=== PATIENT | male | born 1985 | race Caucasian/White ===

== ENCOUNTER 2024-08-30 21:17 | Emergency (ER) | payer BC, SELFPAY ==
[2024-08-30 21:24] VITALS: BP 155/102
[2024-08-30 21:44] VITALS: BP 144/115
--- NOTE | 2024-08-30 21:47 | ED.GENMED ---
History of Present Illness
<JG Mendoza - Last Filed: 08/30/24 23:57>
General
Chief Complaint: Flank Pain
Source: patient and spouse
Exam Limitations: none
Time Seen by Provider: 08/30/24 21:28
Nursing documentation reviewed up to this point in time: agreed with
History of Present Illness
History of Present Illness:
25-year-old male presents to the ER complaining of sudden onset of left flank pain at 1900 associate with several episodes of vomiting. Patient denies any radiation of pain. Denies any difficulty urine or hematuria.
Denies any fever chills pertinent for history kidney stone. Denies any injury.
Patient has not taken anything for pain
Review of Systems
<JG Mendoza - Last Filed: 08/30/24 23:57>
Review of Systems
Allergies reviewed?: Yes
All Other Systems: ROS reviewed and negative except as documented in HPI and ROS
Constitutional: Reports no symptoms
ABD/GI: Reports nausea and vomiting
: Reports flank pain; Denies frequency, incontinence, urgency or bleeding
Musculoskeletal: Reports no symptoms
Skin: Reports no symptoms
Neurological: Reports no symptoms
Phy Exam
<JG Mendoza - Last Filed: 08/30/24 23:57>
General Physical Exam
General Presentation: no apparent distress
General age: appears stated age
General Skin: warm and dry
General Habitus: normal
General Mental: alert
General Hydration: appears well hydrated
Gastrointestinal Exam
Gastrointestinal Exam: non tender and soft
Neurological Exam
Neurological Exam: alert and oriented x3
Musculoskeletal Exam
Musculoskeletal Exam: full ROM
Skin Exam
Skin Exam: normal color and warm/dry
Psychiatric Exam
Psychiatric Exam: normal mood/affect
Course
<JG Mendoza - Last Filed: 08/30/24 23:57>
Orders/Labs/Results
Orders:
Orders
08/30/24 21:46
IV Insert/Care/Rem.- Treatment PRN
0.9% Sodium Chloride 1000 ml [Nss] 1,000 ml IV BOLUS
Ketorolac [Toradol] 15 mg IV NOW STA
Ondansetron Injectable [Zofran] 4 mg IV NOW STA
08/30/24 21:47
CT Abd/pel Without Iv Or Oral Urgent
Comment:
Reason For Exam: left flank pain
08/30/24 21:49
Complete Blood Count/With Diff Urgent
Comprehensive Metabolic Panel Urgent
Urinalysis Reflex To Culture Urgent
Date Specimen was Collected: 08/30/24
Time Specimen was Collected: 21:48
Urine Microscopic Reflex Cult Urgent
08/30/24 23:45
Tamsulosin [Flomax] 0.4 mg PO NOW STA
Abnormal Lab Results
08/30/24
21:49
WBC 12.1 H 10^3/uL
(4.8-10.8)
Abs Immat Gran (auto) 0.1 H 10^3/uL
(0-0.05)
Absolute Neuts (auto) 8.7 H 10^3/uL
(1.4-6.5)
Absolute Monos (auto) 0.7 H 10^3/uL
(0.1-0.6)
Lymphocytes % 19.7 L %
(20.5-51.1)
Glucose 106 H mg/dl
(70-99)
Ur Occult Blood Reflex 4+ A
(Negative)
Urine RBC 40-50 A /HPF
(0-2)
Urine Bacteria (Reflex) Few A
(Negative)
08/30/24 21:49
08/30/24 21:49
Vital Signs
Initial and Last Documented VS:
Initial Vital Signs
Temp Pulse Resp BP Pulse Ox
99 F 76 24 155/102 97
08/30/24 21:24 08/30/24 21:24 08/30/24 21:24 08/30/24 21:24 08/30/24 21:24
Last Documented Vital Signs
Temp Pulse Resp BP Pulse Ox
99 F 62 14 134/94 97
08/30/24 21:24 08/30/24 23:56 08/30/24 23:56 08/30/24 23:56 08/30/24 23:56
Oil Field Equipment Mechanic consulted with Physician
Oil Field Equipment Mechanic consulted with physician?: Yes
Name of Physician Consulted: Olivia
<Ramírez Baker, DO - Last Filed: 08/30/24 23:59>
Orders/Labs/Results
Orders:
Orders
08/30/24 21:46
IV Insert/Care/Rem.- Treatment PRN
0.9% Sodium Chloride 1000 ml [Nss] 1,000 ml IV BOLUS
Ketorolac [Toradol] 15 mg IV NOW STA
Ondansetron Injectable [Zofran] 4 mg IV NOW STA
08/30/24 21:47
CT Abd/pel Without Iv Or Oral Urgent
Comment:
Reason For Exam: left flank pain
08/30/24 21:49
Complete Blood Count/With Diff Urgent
Comprehensive Metabolic Panel Urgent
Urinalysis Reflex To Culture Urgent
Date Specimen was Collected: 08/30/24
Time Specimen was Collected: 21:48
Urine Microscopic Reflex Cult Urgent
08/30/24 23:45
Tamsulosin [Flomax] 0.4 mg PO NOW STA
Abnormal Lab Results
08/30/24
21:49
WBC 12.1 H 10^3/uL
(4.8-10.8)
Abs Immat Gran (auto) 0.1 H 10^3/uL
(0-0.05)
Absolute Neuts (auto) 8.7 H 10^3/uL
(1.4-6.5)
Absolute Monos (auto) 0.7 H 10^3/uL
(0.1-0.6)
Lymphocytes % 19.7 L %
(20.5-51.1)
Glucose 106 H mg/dl
(70-99)
Ur Occult Blood Reflex 4+ A
(Negative)
Urine RBC 40-50 A /HPF
(0-2)
Urine Bacteria (Reflex) Few A
(Negative)
08/30/24 21:49
08/30/24 21:49
Vital Signs
Initial and Last Documented VS:
Initial Vital Signs
Temp Pulse Resp BP Pulse Ox
99 F 76 24 155/102 97
08/30/24 21:24 08/30/24 21:24 08/30/24 21:24 08/30/24 21:24 08/30/24 21:24
Last Documented Vital Signs
Temp Pulse Resp BP Pulse Ox
99 F 62 14 134/94 97
08/30/24 21:24 08/30/24 23:56 08/30/24 23:56 08/30/24 23:56 08/30/24 23:56
<JG Mendoza - Last Filed: 08/30/24 23:57>
MDM/Problems Addressed
Differential Diagnosis Includes:
Not limited to renal stone, muscular back pain
MDM/Problems Addressed:
Patient is a 39-year-old male who presents the ER with sudden left flank pain. CAT scan shows 8.2 mm obstructing calculus at the left UPJ. Patient's white count is 12.1 he denies any fevers at home temp is 99 here , UA is clean. Patient is
comfortable ER well-appearing in no acute distress. Patient given 1 Flomax here will also give patient 1 oxycodone to go this medication prescription was sent to pharmacy here
d/c w/ Urology patient may be discharged home with outpatient follow-up
<JG Mendoza - Last Filed: 08/30/24 23:57>
*Critical Care Note
Total Time (30-74mins, 75-104mins- exclusive of procedures): Not Applicable
ED Attending Note
<JG Mendoza - Last Filed: 08/30/24 23:57>
-
Portions of this chart may have been created with voice recognition software.� Occasional wrong word or��sound alike� substitutions may have occurred due to the inherent limitations of voice recognition software.
<Ramírez Baker DO - Last Filed: 08/30/24 23:59>
ED Attending Note
Patient seen and examined by attending physician: Yes
I performed the substantive portion of visit, reviewed & personally made and approve the management plan that is documented in note by myself or CASSIE.: Yes
ED Attending Note:
Patient was a 39-year-old male who presents to the emergency department with severe acute onset of left flank and back pain. Patient states started just prior to the emergency department. Patient was nauseous and vomited. Patient denies fever or
chills. Patient denies any recent illnesses or injuries. Patient denied any history of similar pain in the past. Patient was very uncomfortable had left CVA tenderness. Heart was regular lungs are clear. Urine showed plus for blood. CT shows
significantly large stone in the proximal left ureter. Patient without pain. Patient has no previous history of kidney stones. Urology was consulted and felt the patient could go home and follow-up as an outpatient.
Discharge Plan
Departure
Patient Disposition: Home (Routine Discharge)
Date of Disposition: 08/30/24
Time of Disposition: 23:52
Patient with high blood pressure during this ER visit?: Yes
Condition: Fair
Covid-19: Not Applicable
Discharge Problem:
KIDNEY STONE
Instructions: Kidney Stones (DC), BLOOD PRESSURE
Prescriptions:
New
oxycodone 5 mg tablet
5 mg PO Q4HPRN PRN (Reason: pain) Qty: 1 0RF
oxycodone 5 mg capsule
5 mg PO Q8H PRN (Reason: Pain) Qty: 10 0RF
tamsulosin [Flomax] 0.4 mg capsule
0.4 mg PO DAILY Qty: 7 0RF
Referrals:
NONE,* [Family Provider] -
Johnnie Velazquez MD [Active] -
Activity Restrictions/Additional Instructions:
As discussed call urology tomorrow morning for an appointment as soon as possible. Be sure to increase your fluid intake.
You may take ibuprofen 600 mg every 8 hours however if increased pain a prescription for oxycodone was sent to your pharmacy take as directed. This is a narcotic. No driving or drink alcohol while taking this medication.
In addition this medication may cause constipation be sure to take an qhib-xeu-fhmehnz laxative.
A second prescription for Flomax was also sent to your pharmacy take as directed.
Return if any worsening of symptoms of increased pain nausea vomiting fever chills
Interventions
Interventions:
*Risk Screen - Suicide Last Done: 08/30/24 21:24
*General Assessment Last Done: 08/30/24 21:41
*Neglect/Abuse Screening Last Done: 08/30/24 21:24
*ED COVID-19 Vaccine History Last Done: 08/30/24 21:41
QZ-Dtjtbb-[id number] Assessment Last Done: 08/30/24 22:06
ED-Male Genitourinary Assessment Last Done: 08/30/24 22:06
Discharge Date and Time
Print Language: LAO
[2024-08-30] MEDS: NSS 1000 IV (21:50)
[2024-08-30] MEDS: ZOFRAN 4 MG IV (21:51)
[2024-08-30] MEDS: TORADOL 15 MG IV (21:51)
[2024-08-30 22:00] VITALS: BP 154/102
[2024-08-30 22:10] LABS: % Basophils 0.6 % (0-2); % Eosinophils 1.8 % (0-6); % Immature Granulocytes 0.5 % (0-0.5); % Lymphocytes 19.7 % (20.5-51.1); % Monocytes 5.5 % (1.7-9.3); % Neutrophils 71.9 % (42.2-75.2); Absolute Basophils 0.1 10^3/uL (0-0.2); Absolute Eosinophils 0.2 10^3/uL (0-0.7); Absolute Immature Granulocytes 0.1 10^3/uL (0-0.05); Absolute Lymphocytes 2.4 10^3/uL (1.2-3.4); Absolute Monocytes 0.7 10^3/uL (0.1-0.6); Absolute Neutrophils 8.7 10^3/uL (1.4-6.5); Hematocrit 42.9 % (39.0-52.0); Hemoglobin 14.9 g/dL (13.0-18.0); Mean Corp Hgb Conc. 34.7 g/dL (33.0-37.0); Mean Corpuscular Hgb 28.8 pg (27.0-31.0); Mean Corpuscular Volume 82.8 fL (80.0-94.0); Mean Platelet Volume 8.7 fL (7.4-10.4); Nucleated Red Blood Cells % 0 % (-); Platelet Count 236 10^3/uL (130-400); Red Blood Cell Count 5.18 10^6/uL (4.70-6.10); Red Cell Dist. Width 12.3 % (11.5-14.5); Urine Albumin Trace (Neg - Trace); Urine Bilirubin Negative (Negative); Urine Character Clear (Clear); Urine Color Yellow; Urine Glucose Negative (Negative); Urine Ketone Negative (Negative); Urine Leukocyte Negative (Negative); Urine Nitrite Negative (Negative); Urine Occult Blood 4+ (Negative); Urine Specific Gravity 1.025 (<1.030); Urine Urobilinogen Negative (Neg - 1+); White Blood Cell Count 12.1 10^3/uL (4.8-10.8)
[2024-08-30 22:27] LABS: Urine Bacteria Few (Negative); Urine Red Blood Cell 40-50 /HPF (0-2); Urine White Cell 0-2 /HPF (0-5)
[2024-08-30 22:29] LABS: ALT (SGPT) 25 U/L (0-50); AST (SGOT) 21 U/L (17-59); Albumin 4.6 g/dl (3.5-5.0); Alkaline Phosphatase 76 U/L (38-126); Blood Urea Nitrogen 19 mg/dl (9-20); Calcium 9.9 mg/dl (8.4-10.2); Carbon Dioxide 23 mmol/L (22-30); Chloride 105 mmol/L (98-107); Glucose 106 mg/dl (70-99); Sodium 141 mmol/L (135-145); Total Bilirubin 0.3 mg/dl (0.2-1.3); Total Protein 6.8 g/dl (6.3-8.2); eGFR > 60.00
[2024-08-30] MEDS: FLOMAX 0.4 MG PO (23:52)
[2024-08-30 23:56] VITALS: BP 134/94
--- NOTE | 2024-08-31 01:07 | EDRN ---
aJylin Zuñiga NP giving pt oxycodone 5mg PO to take home and having him sign paperwork for receipt from pharmacy
[2024-08-31 01:09] VITALS: BP 140/74
== END 2024-08-31 01:17 | disposition home or self-care (01) ==
LOC: EMR 21:17
PROVIDERS: Nurse Practitioner; EMERGENCY PHYSICIAN Emergency Medicine
DX: N13.2 Hydronephrosis with renal and ureteral calculous obstruction (principal)
CPT/HCPCS: 96374; 96375; 96361; 99284; 74176; 80053; 81003; 81015; 85025

== ENCOUNTER 2024-08-31 14:05 | Day surgery (SDC) | payer BC, SELFPAY ==
[2024-08-31] VITALS (16 sets, daily range): BP systolic 116–168; BP diastolic 72–90; BMI 37.4
--- NOTE | 2024-08-31 10:17 | ED.GENMED ---
History of Present Illness
General
Chief Complaint: Flank Pain
Source: patient and spouse
Time Seen by Provider: 08/31/24 10:03
History of Present Illness
History of Present Illness:
39-year-old male presents to the emergency room complaining of left flank pain. Patient was seen here in the emergency room last evening and diagnosed with a kidney stone. He was treated with some IV ketorolac which did help at that time. However
during the night the pain has returned and is severe. He did not have any relief with 400 of ibuprofen or oxycodone 5 mg. He is has nausea and did vomit. No fever.
Phy Exam
Physical Exam
Physical Exam:
General: Awake, Alert, Oriented X3. Appears uncomfortable
Vitals: unremarkable
Head: Atraumatic
Eyes: Pupils equal, EOMI
Throat: Airway intact, no exudates
Neck: Trachea midline
Lungs: Clear and equal b/l
Heart: Regular rate, no murmurs
Abd: Soft, Nontender, No pulsatile mass
Neuro: Nonfocal
Skin: Warm, dry, no rash
Extremities: pulses equal b/l, no edema
Course
Orders/Labs/Results
Orders:
Orders
08/31/24 10:17
HYDROmorphone [Dilaudid] 1 mg IV NOW STA
Ondansetron Injectable [Zofran] 4 mg IV NOW STA
08/31/24 11:15
HYDROmorphone [Dilaudid] 1 mg IV NOW STA
Ketorolac [Toradol] 15 mg IV NOW STA
08/31/24 12:16
LevoFLOXacin 750 MG/150 ML [Levaquin] 750 mg in 150 ml IV NOW
08/31/24 12:17
HYDROmorphone [Dilaudid] 0.5 mg IV NOW STA
Vital Signs
Initial and Last Documented VS:
Initial Vital Signs
Temp Pulse Resp BP Pulse Ox
98.3 F 76 18 129/79 98
08/31/24 10:00 08/31/24 10:00 08/31/24 10:00 08/31/24 10:00 08/31/24 10:00
Last Documented Vital Signs
Temp Pulse Resp BP Pulse Ox
98.3 F 76 18 131/86 95
08/31/24 10:00 08/31/24 10:00 08/31/24 10:00 08/31/24 11:00 08/31/24 11:00
MDM/Problems Addressed
Differential Diagnosis Includes:
kidney stone with uncontrolled pain, infected stone,
MDM/Problems Addressed:
Patient presents with severe flank pain. Patient has a known kidney stone which is fairly large 8 mm. He did attempt pain control at home with oxycodone, Tylenol and ibuprofen. No fever. Labs reviewed from recent visit. No evidence for infected
stone. Renal function was normal. I do not believe repeating labs is indicated at this time as it has been less than 24 hours. Case discussed with Dr. Goodwin. Given patient's uncontrolled pain, size of the stone and low chance the stone will
pass spontaneously we will hospitalize the patient and plan on urologic intervention. Dr. Goodwin requested antibiotics be given. Patient is allergic to cephalosporins so we will give a dose of Levaquin here.
*Pulse Oximetry
Patient hypoxic: no
*Critical Care Note
Total Time (30-74mins, 75-104mins- exclusive of procedures): Not Applicable
ED Attending Note
-
Portions of this chart may have been created with voice recognition software.� Occasional wrong word or��sound alike� substitutions may have occurred due to the inherent limitations of voice recognition software.
Discharge Plan
Departure
Patient Disposition: Admit
Date of Disposition: 08/31/24
Time of Disposition: 11:38
Admit to: Med/Surg
Presentation/result/management discussed w/ accepting MD/DO: Hospitalist
Condition: Fair
Discharge Problem:
Kidney stone on left side
Prescriptions:
No Action
oxycodone 5 mg capsule
5 mg PO Q8H PRN (Reason: Pain) Qty: 10 0RF
tamsulosin [Flomax] 0.4 mg capsule
0.4 mg PO DAILY
Rx Instructions:
08/31/24: 1st dose admin at ED on 08/30/24-has not picked up Rx from pharmacy yet
Referrals:
Giles Goodwin MD [Active] - (you have a syenrt ecxpecy blood burning and urgency wiy-th urin ation Call Dr Goodwin [phone] to set up next phase treatment)
NONE,* [Family Provider] -
Discharge Date and Time
Print Language: CUBAN
[2024-08-31] MEDS: ZOFRAN 4 MG IV ×2 (10:50→18:29)
[2024-08-31] MEDS: DILAUDID 1 MG IV ×2 (10:52→11:17)
[2024-08-31] MEDS: TORADOL 15 MG IV (11:17)
--- NOTE | 2024-08-31 12:28 | W.PN.URO.CBU ---
Today's Communication / Plan
-
for op room today npo ancef now iv hospitalist to see
Assessment / Plan
-
intractable pain for jj stent today but if stable will attempt laser basket
Diagnosis
-
Date of Service: August 31, 2024
-
Patient Diagnosis:
left 8x 6 mm opj stone with intractable [pain x 36 hours fever to 100.4 yesterday
Post Op Day:
Subjective
-
colic nausea
Objective
-
Vital Signs
Temp Pulse Resp BP Pulse Ox
98.3 F 76 18 131/86 95
08/31/24 10:00 08/31/24 10:00 08/31/24 10:00 08/31/24 11:00 08/31/24 11:00
Review of Systems
-
Abdomen/GI: Nausea
: Flank Pain
Physical Exam
-
General - well developed, well nourished, no acute distressnon toxic
Chest - clear bilaterally
Abdomen - soft, non-tender, positive bowel sounds, no CVAT,
Genitalia - normal
Rectal - normal
Skin - warm & dry with no rash
Neuro - AOx3, no motor deficits
Extremities - no clubbing, no cyanosis, no edema
Care Review
Data Reviewed
Discussed with: Hospitalist, Nursing and Family
CT Scan: Image Pers Reviewed
[2024-08-31] MEDS: LEVAQUIN 150 IV (12:53)
--- NOTE | 2024-08-31 13:58 | HPS.HSE ---
Addendum entered and electronically signed by Nithin Lorenz MD 08/31/24 14:38:
seen and examined by me independently in collaboration with the senior vice president and chief information officer Kevyn.
Past medical history/social history/medication/allergies reviewed.
Lab data and imaging data reviewed.
Patient presents with intractable left flank pain from obstructed left ureteropelvic junction stone. Associated hydronephrosis noted. Patient clinically not looking infected. Afebrile. No pyuria. Mildly elevated white count which could be
reactive. Nontoxic. In view of failed outpatient passage of stone patient will be admitted to hospitalist observation for interventions. Urology consulted.
He is otherwise without any medical diagnoses nor takes any regular medication.
CT of the abdomen pelvis without oral or IV contrast shows mild rectal wall thickening which i suspect under distention related based on available data points. He has no GI issues. No change in bowel habits, blood in the stools, constipation or
diarrhea. No family history of colon cancer. I recommended him to follow-up with PCP get a CT abdomen pelvis with oral and IV contrast and still abnormal then for an endoscopic eval as an outpatient.He understood the plan with regards to this.
Original Note:
Family Physician
-
Family Physician: * NONE
Chief Complaint
-
Left-sided flank pain
History of Present Illness
39-year-old male with past medical history of GERD presents for 1 day of left-sided flank pain. He presented to the emergency department yesterday, had a CT scan which demonstrated an 8 mm left renal stone at the ureteropelvic junction and
associated mild to moderate left-sided hydronephrosis. He was discharged home from the ED with oral pain medications and tamsulosin. However pain was too severe and he presented again to the emergency department today. Urology was consulted who
is considering taking him either tonight or tomorrow for very stent or laser treatment.
Medical History
Past Medical History
Past Medical History: Reports GERD
Past Surgical History: Reports Orthopedic and Other (Repair, right side shoulder surgery)
Social History
Tobacco: Non-smoker
Alcohol: Occasional
Drug: None
Personal:
Living: With Family
Employment: Employed
Family History
Family History: Not pertinent and Other (Early onset AAA)
Allergies / Home Medications
Allergies reflects when Allergies were last updated in [facility].
Home Medications with original date entered in [facility]
Allergy/Medication List:
Allergies
Allergy/AdvReac Type Severity Reaction Status Date / Time
cephalexin Allergy Itching Verified 08/31/24 09:55
Home Medications
oxycodone 5 mg capsule 5 mg PO Q8H PRN Pain #10 caps 08/30/24
tamsulosin 0.4 mg capsule (Flomax) 0.4 mg PO DAILY Urinary Issue 08/31/24
Review of Systems
-
History Source: Patient
A 12 point ROS was completed and negative except as noted: No
Constitutional: Reports No Symptoms
Respiratory: Reports No Symptoms
Cardiac: Reports No Symptoms
Abdomen/GI: Reports Pain (Left-sided flank pain, radiating to back)
: Reports Flank Pain
Physical Exam
Vital Signs
Vital Signs
Temp Pulse Resp BP Pulse Ox
98.3 F 76 18 131/86 95
08/31/24 10:00 08/31/24 10:00 08/31/24 10:00 08/31/24 11:00 08/31/24 11:00
Physical Exam
General: Well Developed, Well Nourished and Pain
Respiratory: Clear
Cardiac: S1/S2 and Regular Rhythm
GI: Soft, Non Tender and Non Distended
Genito-urinary: No costovertebral tender
Musculoskeletal: No Edema
Skin: Warm and Dry
Neuro: Awake, Alert, Oriented and AO x 3
Psych: Calm and Intact Judgment/Insight
Data Reviewed
-
CT Scan: Report Reviewed by me and Discussed with Physician
Lab Data: Labs Reviewed by me and Discussed with Physician
Impression/Plan
-
IMPRESSION:
39-year-old male past medical history of GERD presents for left ureteropelvic junction kidney stone.
PLAN:
#Left-sided nephrolithiasis with associated hydronephrosis
Noncontrast CT in ED demonstrated 8.2 mm obstructing calculus in the left uteropelvic junction with mild to moderate left hydronephrosis
Urology consulted and considering taking patient for procedure tonight or tomorrow
Admit for observation
N.p.o. allow p.o. meds
Pain management with acetaminophen, oxycodone and Dilaudid
Zofran as needed
Maintenance NSS gently
Received one-time levofloxacin IV in ED
UA clean, patient afebrile, slightly elevated white count
We will hold off on future antibiotics for now
Continue Flomax p.o.
#GERD
P.o. Protonix daily scheduled
CODE STATUS: Full code
Diet: N.p.o.
DVT prophylaxis: Lovenox
[2024-08-31] MEDS: DILAUDID 0.5 MG IV (14:46)
--- NOTE | 2024-08-31 17:19 | W.SUR.POST ---
Surgical Immediate Post Op
Note
Pre Op Diagnosis: intravtable pain due to left upj stone 8 x 6 mm
Post Op Diagnosis:same
Procedure Performed: left uretroscopy laser stone manipulation basket extraction jj stent
Primary Surgeon: shavon
Secondary Surgeons:
Anesthesia: matep general
Estimated Blood Loss:
Fluids: nss
Drains/Shunts: 6 frr 24 cnm jj stent
Specimens/Cultures: renal stone
Doppler/Duplex/Angio (Y/N):
Complications:0
Operative Findings: lg stone esconced inleft upj manipulayed back into pelvis broken withkelsey dodson and jose;l frgments sent for chemical analysis stented
[2024-08-31] MEDS: FLOMAX 0.4 MG PO (17:56)
[2024-08-31] MEDS: PROTONIX PO (18:29)
--- NOTE | 2024-08-31 18:39 | SUR.PHASEI ---
discharge from [facility] to [address] [place] [address] - patient turned self in room and talking with - then violent vomitting - dark brown Liquid. 2 taiwo RN with patient, mouth care given - patient states he has been vomitting for 24 hours.
[2024-08-31] MEDS: LOVENOX 40 MG SC (20:36)
[2024-08-31] MEDS: ROXICODONE 5 MG PO (20:38)
[2024-08-31] MEDS: NSS 1000 IV (21:22)
[2024-09-01 03:00] VITALS: BP 146/90
[2024-09-01 05:37] LABS: Hematocrit 45.1 % (39.0-52.0); Hemoglobin 15.4 g/dL (13.0-18.0); Mean Corp Hgb Conc. 34.1 g/dL (33.0-37.0); Mean Corpuscular Hgb 29.8 pg (27.0-31.0); Mean Corpuscular Volume 87.2 fL (80.0-94.0); Mean Platelet Volume 9.2 fL (7.4-10.4); Platelet Count 237 10^3/uL (130-400); Red Blood Cell Count 5.17 10^6/uL (4.70-6.10); Red Cell Dist. Width 12.5 % (11.5-14.5); White Blood Cell Count 9.9 10^3/uL (4.8-10.8)
[2024-09-01 06:00] LABS: ALT (SGPT) 27 U/L (0-50); AST (SGOT) 25 U/L (17-59); Albumin 4.3 g/dl (3.5-5.0); Alkaline Phosphatase 60 U/L (38-126); Blood Urea Nitrogen 18 mg/dl (9-20); Calcium 9.3 mg/dl (8.4-10.2); Carbon Dioxide 24 mmol/L (22-30); Chloride 105 mmol/L (98-107); Estimated Creatinine Clearance 111 ml/min; Glucose 112 mg/dl (70-99); Potassium 4.8 mmol/L (3.5-5.1); Sodium 142 mmol/L (135-145); Total Bilirubin 0.6 mg/dl (0.2-1.3); Total Protein 6.5 g/dl (6.3-8.2); eGFR > 60.00
[2024-09-01 07:00] VITALS: BP 147/83
[2024-09-01] MEDS: FLOMAX 0.4 MG PO (08:23)
[2024-09-01] MEDS: PROTONIX 40 MG PO (08:23)
--- NOTE | 2024-09-01 09:12 | W.PN.URO.CBU ---
Today's Communication / Plan
-
ok for d/c when cleared by hiospitaist
Assessment / Plan
-
intractable pain relieved afebrile home when cleared by hospitalist with po home abs stent out 1 week
Diagnosis
-
Date of Service: September 01, 2024
-
Patient Diagnosis:
Post Op Day: 1
Patient Diagnosis:
left 8x 6 mm opj stone with intractable [pain x 36 hours fever to 100.4 now afebrile s/p laser stenting
Post Op Day:
Subjective
-
feels well
Objective
-
Vital Signs
Temp Pulse Resp BP Pulse Ox
97.9 F 66 18 147/83 96
09/01/24 07:00 09/01/24 07:00 09/01/24 07:00 09/01/24 07:00 09/01/24 07:00
Intake and Output
08/31/24 09/01/24 09/02/24
06:59 06:59 06:59
Intake Total 1250 / 1250
Output Total 750 / 750
Balance 500 / 500
Intake:
Oral fluids 290 / 290
IV fluids (Total) 960 / 960
normosol 150 / 150
tylenol 100 / 100
Output:
Urine, Voided 750 / 750
Laboratory Results
09/01/24 04:13
09/01/24 04:13
Review of Systems
-
: Frequency
Physical Exam
-
General - well developed, well nourished, no acute distress
Chest - clear bilaterally
Abdomen - soft, non-tender, positive bowel sounds, no CVAT, no incisional pain or distention
Genitalia - normal
Rectal - normal
Skin - warm & dry with no rash
Neuro - AOx3, no motor deficits
Extremities - no clubbing, no cyanosis, no edema
Incision - clean, dry
Dressing - clean, dry, intact
Care Review
Data Reviewed
Discussed with: Hospitalist
--- NOTE | 2024-09-01 09:19 | W.PN.HOSP.TC ---
Addendum entered and electronically signed by Nithin Lorenz MD 09/01/24 14:21:
Seen and examined by me independently in collaboration with the certified court/medical interpreter Kevyn.
Lab data and imaging data reviewed.
Addendum as below :
Resolved abdominal pain. No fever or chills.
No nausea vomiting.
Abdomen benign.
Appreciate urology input and is cleared from there and for discharge.
The patient had a cystoscopy with lithotripsy and stent placement in the left ureter. As recommended by urology 5 days of antibiotics prescribed-Bactrim.
Follow-up with urology as an outpatient once discharged. Is medically stable for discharge.
Went over the patient about asymptomatic abnormal rectal wall finding on noncontrast CT. Advised to obtain a CT with p.o. and IV contrast and follow-up with his PCP.
Total time of discharge 32 minutes.
Original Note:
Today's Communication/Plan
-
Discharge home with outpatient urology follow-up
Assessment / Plan
Assessment / Plan
IMPRESSION:
39-year-old male past medical history of GERD presents for left ureteropelvic junction kidney stone.
PLAN:
#Left-sided nephrolithiasis with associated hydronephrosis
Noncontrast CT in ED demonstrated 8.2 mm obstructing calculus in the left uteropelvic junction with mild to moderate left hydronephrosis
Urology consulted and following
Status post laser stenting procedure, 08/31/2024
Pain management with acetaminophen, oxycodone and Dilaudid
Zofran as needed
pt reports one episode of vomiting after OR, but no nausea since
tolerating diet well with no issues
Can discontinue NSS as patient is eating and drinking
Received one-time levofloxacin IV in ED
UA clean, patient afebrile, slightly elevated white count
We will hold off on future antibiotics for now
Continue Flomax p.o.
#GERD
P.o. Protonix daily scheduled
#rectal thickening
Thickened rectal wall seen on non contrast CT
Will get CT with IV and oral contrast as outpatient for further work up
CODE STATUS: Full code
Diet: Regular
DVT prophylaxis: Lovenox
Anticipated Discharge: Today
Subjective/Interval History
-
Date of Service: September 01, 2024
one episode of vomiting after procedure, no nausea since. Pain well controlled
Objective Data
-
Labs:
Laboratory Results
09/01/24
04:13
WBC 9.9
Hgb 15.4
Hct 45.1
Plt Count 237
Sodium 142
Potassium 4.8
Chloride 105
Carbon Dioxide 24
BUN 18
Creatinine 1.2
Glucose 112 H
Calcium 9.3
Total Bilirubin 0.6
AST 25
ALT 27
Alkaline Phosphatase 60
Vital Signs:
Vital Signs
Temp Pulse Resp BP Pulse Ox
97.9 F 66 18 147/83 96
09/01/24 07:00 09/01/24 07:00 09/01/24 07:00 09/01/24 07:00 09/01/24 07:00
I&O
08/31/24 09/01/24 09/02/24
06:59 06:59 06:59
Intake Total 1250 / 1250
Output Total 750 / 750
Balance 500 / 500
Review of Systems
-
History Source: Patient
Respiratory: Reports No Symptoms
Cardiac: Reports No Symptoms
Abdomen/GI: Reports No Symptoms
Genitourinary: Reports Other (hematuria)
Physical Exam
-
General: Well Developed, Well Nourished, No Apparent Distress, Comfortable and Conversant
Respiratory: Clear to Auscultation
Cardiac: Regular Rhythm and S1/S2
GI: Soft, Nontender and Nondistended
Genito-urinary: Costovertebral Angle Tend and Bloody Urine
Musculoskeletal: No Edema
Skin: Warm and Dry
Neuro: Awake, Alert, Oriented and AO x 3
Psych: Calm and Intact Judgement/Insight
Data Reviewed
-
Diagnostic Radiology: Report Reviewed by me and Discussed with Physician
Labs: Labs Reviewed by me and Discussed with Physician
[2024-09-01 10:45] VITALS: BP 136/82
--- NOTE | 2024-09-01 11:17 | CM ---
CM met with pt bedside
Pt resides with his spouse in a 2SH with 0STE
Ful flight to 2nd floor- has capability to sleep in 1st floor if needed
Pt is indep with his ADLs- no DMEs
Denies financial insecurities
PCP- none, resident clinic info provided
Rx- Jose Cano
Pt is OBS- OBS form verbally reviewed
Copy provided
Discharge Disposition- home, no needs, spouse will transport
--- NOTE | 2024-09-01 13:29 | W.DCSUMMARY ---
Discharge Summary
Discharge Data
Date of Admission: 08/31/24
Date of Discharge: 09/01/24
-
Pending Results: No
Hospital Course
Discharging Physician : Kelechi Diallo
Disposition : Home
Primary care physician : Dr. Pb Myers
Principal Discharge diagnosis : Left-sided kidney stone
Chronic Discharge diagnosis : Gastroesophageal reflux disease, obesity
Hospital Course : 39-year-old male with a past medical history of obesity and GERD presents to the ER complaining of sudden onset left flank pain associated with episodes of vomiting. In the ED patient received a noncontrast CT which demonstrated
an 8.2 mm obstructing renal calculus in the left ureteropelvic junction. Patient was informed of this, given prescription for oxycodone and tamsulosin and told to follow-up with urology as an outpatient. However pain was too great so patient
presented to the emergency department the next day, urology was consulted and they agreed to take the patient for a procedure that night. Patient was admitted for observation and for his urologic procedure, he received a stent placement with laser
break-up of his renal calculus. Patient tolerated the procedure well, had no postop issues and tolerated his diet with no nausea or vomiting. After the procedure patient did endorse hematuria. Patient's pain was minimal and he was stable to be
discharged with urology follow-up later for stent removal. Urology also recommended 5 days of double strength Bactrim which was provided for the patient on discharge. Of note CT scan demonstrated some rectal thickening, we recommended that patient
follow-up with his primary care physician to order a CT scan with IV and oral contrast to further evaluate this. Patient does not have a PCP and was referred to the resident wellness clinic at [place]. Patient was discharged home and patient
will follow-up with urology and his primary care physician after discharge.
Important imaging findings :
08/30/[address] abdomen pelvis, impression:
1. MILD to MODERATE LEFT HYDRONEPHROSIS secondary to an 8.2 mm obstructing calculus in the left ureteropelvic junction.
2. Small hiatal hernia.
3. 2.5 cm segment of mild circumferential wall thickening in the superior rectum. Diagnostic possibilities are (1) under distention of the rectal lumen, (2) a mild proctitis, or (3) less likely rectal carcinoma.
08/31/2024 abdominal x-ray, impression:
Left ureteral stent in place following laser lithotripsy of an obstructing left ureteropelvic junction calculus.
Procedure findings :
08/31/2024, left urethral stent and laser treatment for kidney stone
Discharge Plan
-
Patient Disposition: Home (Routine Discharge)
Discharge Diagnosis/Procedures: Left sided kidney stone
Condition: Good
Diet: No restrictions
Activity: As tolerated
Driving Restrictions: As prior to admission
Bathing Restrictions: None
Others Tests: CT abdomen pelvis with IV and PO contrast tp follow on rectal wall thickening- found on non contrast CT
Stand Alone Forms: Return to Work
Referrals:
Giles Goodwin MD [Active] - in one to two weeks
NONE,* [Family Provider] -
Pb Myers MD, Resident [Family Practice Resident Year2] - in less than 1 week
Additional Discharge Medication Instructions: Continue taking Flomax 0.4 by mouth daily
start Bactrim double strength twice a day by mouth for a total 5 days
Prescriptions:
New
sulfamethoxazole-trimethoprim [Bactrim DS] 800-160 mg tablet
1 tab PO BID Qty: 10 0RF
Continued
oxycodone 5 mg capsule
5 mg PO Q8H PRN (Reason: Pain) Qty: 10 0RF
tamsulosin [Flomax] 0.4 mg capsule
0.4 mg PO DAILY
Rx Instructions:
08/31/24: 1st dose admin at ED on 08/30/24-has not picked up Rx from pharmacy yet
Discharge Orders:
Discharge Patient (As Directed); Ordered 09/01/24
Ordered By: Spenser Diallo
Discharge Date and Time
Discharge Date/Time: 09/01/24 13:06
Print Language: NIUEAN
== END 2024-09-01 13:06 | disposition home or self-care (01) ==
LOC: SDS 14:05
PROVIDERS: Specialist; ATTENDING PHYSICIAN Internal Medicine; EMERGENCY PHYSICIAN Emergency Medicine
DX: N13.2 Hydronephrosis with renal and ureteral calculous obstruction (principal)
CPT/HCPCS: 52356; 74018; 76000; 80053; 82365; 85027; 96365; 96375; 99285; 99406; C1894; C2617; G0378